=== PATIENT | male | born 1960 | race Caucasian/White ===

== ENCOUNTER → 2024-04-09 14:42 | Outpatient (REF) | payer OTHER, SELFPAY | LOC: RCS 14:42 | PROVIDERS: ATTENDING PHYSICIAN Thoracic Surgery (Cardiothoracic Vascular Surgery); FAMILY PHYSICIAN Internal Medicine | DX: Z95.2 Presence of prosthetic heart valve (principal) | CPT/HCPCS: 93306 ==

== ENCOUNTER → 2024-11-24 12:54 | Outpatient (REF) | payer OTHER, SELFPAY | LOC: RCS 12:54 | PROVIDERS: ATTENDING PHYSICIAN Internal Medicine Cardiovascular Disease; FAMILY PHYSICIAN Internal Medicine | DX: I35.0 Nonrheumatic aortic (valve) stenosis (principal); Z95.2 Presence of prosthetic heart valve; I34.0 Nonrheumatic mitral (valve) insufficiency | CPT/HCPCS: 93306 ==

== ENCOUNTER → 2025-06-15 14:23 | Outpatient (REF) | payer OTHER, SELFPAY | LOC: RAD 14:23 | PROVIDERS: ATTENDING PHYSICIAN Internal Medicine | DX: D50.9 Iron deficiency anemia, unspecified (principal); C81.18 Nodular sclerosis Hodgkin lymphoma, lymph nodes of multiple sites | CPT/HCPCS: 71260; 74177; Q9967 ==

== ENCOUNTER → 2025-07-28 12:30 | Outpatient (REF) | payer OTHER, SELFPAY | LOC: RCS 12:30 | PROVIDERS: ATTENDING PHYSICIAN Internal Medicine Cardiovascular Disease; FAMILY PHYSICIAN Internal Medicine | DX: I35.0 Nonrheumatic aortic (valve) stenosis (principal); Z95.2 Presence of prosthetic heart valve | CPT/HCPCS: 93306 ==

== ENCOUNTER 2025-07-30 06:12 | Day surgery (SDC) | payer OTHER, SELFPAY ==
[2025-07-30 08:27] VITALS: BMI 23.3
[2025-07-30 08:28] VITALS: BMI 23.3
[2025-07-30 08:29] VITALS: BP 128/88
[2025-07-30 10:23] VITALS: BP 109/65
[2025-07-30 10:31] VITALS: BP 118/70
[2025-07-30 10:45] VITALS: BP 126/72
== END 2025-07-30 11:23 | disposition home or self-care (01) ==
LOC: GI 06:12
PROVIDERS: ATTENDING PHYSICIAN Internal Medicine Gastroenterology
DX: D50.0 Iron deficiency anemia secondary to blood loss (chronic) (principal); K57.30 Diverticulosis of large intestine without perforation or abscess without bleeding; K64.9 Unspecified hemorrhoids; K44.9 Diaphragmatic hernia without obstruction or gangrene; K22.89 Other specified disease of esophagus; K31.7 Polyp of stomach and duodenum; D12.3 Benign neoplasm of transverse colon; L83 Acanthosis nigricans; K31.89 Other diseases of stomach and duodenum; K20.80 Other esophagitis without bleeding
CPT/HCPCS: 45380; 43239; 88305; 88342

== ENCOUNTER → 2025-09-14 12:02 | Outpatient (REF) | payer OTHER, SELFPAY | LOC: RAD 12:02 | PROVIDERS: ATTENDING PHYSICIAN Internal Medicine Gastroenterology; FAMILY PHYSICIAN Internal Medicine | DX: T18.9XXS Foreign body of alimentary tract, part unspecified, sequela (principal) | CPT/HCPCS: 74022 ==